=== PATIENT | female | born 1990 | race Caucasian/White ===

== ENCOUNTER 2021-12-19 16:57 | Emergency (ER) | payer OTHER ==
[2021-12-19 17:29] LABS: HEMOGLOBIN 13.9 gm/dl (12.3-15.3); RED BLOOD COUNT 4.34 M/UL (4.00-5.10); WHITE BLOOD COUNT 13.3 K/UL (4.5-11.0)
[2021-12-19 17:39] LABS: BUN/CREATININE RATIO 7 (0-10)
[2021-12-19] MEDS ORDERED: TORADOL 10 MG T10 MG PO (21:57)
[2021-12-19] MEDS ORDERED: ONDANSETRON ODT4 MG SL (21:57)
== END 2021-12-19 22:03 | disposition home or self-care (01) ==
LOC: ER1 16:57
PROVIDERS: Emergency Medicine
DX: N83.201 Unspecified ovarian cyst, right side (principal); F17.200 Nicotine dependence, unspecified, uncomplicated; Z88.1 Allergy status to other antibiotic agents
CPT/HCPCS: 80053; 81001; 83690; 84703; 85025; 96361; 96374; 96375; 99284; J1885; J2405; Q9967